=== PATIENT | female | born 1940 | race Caucasian/White ===

== ENCOUNTER 2017-06-02 11:41 | Day surgery (SDC) | payer MEDICARE, OTHER ==
[~2017-06-02] VITALS: Ht 162.6 cm; Wt 111.1 kg
[~2017-06-02 11:41] MED LIST: CITA20 PO; GABA100 PO; LEVSOD88 PO; Lovastatin20 MG PO; NORT25 PO; Omeprazole20 M1 PO; PROP10 PO; Prinivil10 MG PO; RANI150 PO; VICODIN ES 7.51 EACH PO; ZOLP10 PO
[2017-06-02] MEDS ORDERED: ENOX40I SC (15:27)
[2017-06-02] MEDS ORDERED: OXYC5 PO (15:28)
[2017-06-02] MEDS ORDERED: PROM25 PO (15:29)
[2017-06-03 04:35] LABS: BASOPHILS ABSOLUTE AUTO 0.06 K/mm3 (0.00-0.23); BASOPHILS PERCENT AUTO 0 % (0-2); EOSINOPHILS ABSOLUTE AUTO 0.19 K/mm3 (0.00-0.68); EOSINOPHILS PERCENT AUTO 1 % (0-6); Hematocrit 37.4 % (33.0-51.0); Hemoglobin 12.2 g/dL (11.5-16.0); IMMATURE GRAN ABSOLUTE AUTO 0.07 K/mm3 (0.00-0.10); IMMATURE GRAN PERCENT AUTO 0 % (0-1); LYMPHOCYTES ABSOLUTE AUTO 3.44 K/mm3 (0.84-5.20); LYMPHOCYTES PERCENT AUTO 21 % (21-46); MONOCYTES ABSOLUTE AUTO 1.31 K/mm3 (0.16-1.47); MONOCYTES PERCENT AUTO 8 % (4-13); Mean Corpuscular HGB 28.1 pg (26.0-34.0); Mean Corpuscular HGB Conc 32.6 g/dL (31.5-36.5); Mean Corpuscular Volume 86 fL (80-100); Mean Platelet Volume 10.9 fL (9.1-12.4); NEUTROPHILS ABSOLUTE AUTO 11.07 K/mm3 (1.96-9.15); NEUTROPHILS PERCENT AUTO 69 % (41-73); Platelet Count 237 K/mm3 (150-400); RDW Coefficient Variation 13.2 % (11.7-14.2); RDW Standard Deviation 40.9 fL (35.1-46.3); Red Blood Cell Count 4.34 M/mm3 (3.80-5.20); White Blood Cell Count 16.14 K/mm3 (4.00-11.30)
[2017-06-03 04:54] LABS: Anion Gap 7 mmol/L (6-16); Blood Urea Nitrogen 16 mg/dL (8-24); Bun/Creatinine Ratio 22.9 (12.0-20.0); CO2, Blood 26 mmol/L (21-32); Calcium, Blood 8.6 mg/dL (8.5-10.1); Chloride, Blood 105 mmol/L (98-108); Glomerular Filtration Rate >60 (60-); Glucose, Blood 122 mg/dL (70-99); Magnesium, Blood 1.9 mg/dL (1.6-2.4); Potassium, Blood 4.3 mmol/L (3.5-5.5); Sodium, Blood 138 mmol/L (136-145)
[2017-10-08] MEDS ORDERED: Oxybutynin Chlo10 MG (11:28)
[2017-10-08] MEDS ORDERED: HYDR1TAB94 (11:29)
== END 2017-06-03 15:12 | disposition home or self-care (01) ==
LOC: ORSCMMR 11:41 → SURS 11:41 → PRE IP 11:41 → EDSTATUS 15:00 → SURS 17:39 → ENPENDDIS 06-03 08:39 → ORSCMMR 06-03 15:12 → SURS 06-03 15:12
PROVIDERS: Orthopaedic Surgery
PROC: 0SRC0J9 Replacement of Right Knee Joint with Synthetic Substitute, Cemented, Open Approach (ICD-10-PCS; principal; 2017-06-02 15:00)
PROC: 8E0YXBZ Computer Assisted Procedure of Lower Extremity (ICD-10-PCS; principal; 2017-06-02 15:00)
DX: M17.11 Unilateral primary osteoarthritis, right knee (principal); E11.9 Type 2 diabetes mellitus without complications; F41.8 Other specified anxiety disorders; G47.33 Obstructive sleep apnea (adult) (pediatric); K21.9 Gastro-esophageal reflux disease without esophagitis; E78.5 Hyperlipidemia, unspecified; E03.9 Hypothyroidism, unspecified; I10 Essential (primary) hypertension; Z87.891 Personal history of nicotine dependence; E66.01 Morbid (severe) obesity due to excess calories; Z68.41 Body mass index [BMI] 40.0-44.9, adult; Z79.899 Other long term (current) drug therapy
CPT/HCPCS: 36415; 73560-RT; 80048; 82947; 83735; 85025; 86850; 86900; 86901; 88300; 97110; 97116; 97162; 97530; C1713; C1776; G8978; G8979; J0171; J0690; J0735; J1170; J1650; J1885; J2250; J2405; J2795; J3370; J7120

== ENCOUNTER → 2019-05-23 | Outpatient (CLI) | payer MEDICARE, OTHER ==
[~2019-05-23] MED LIST changes: +ASCO500 PO; +B Complex-Foli1 EACH PO; -CITA20 PO; +Citalopram HBr40 MG PO; +ENOX40I SC; +HYDR1TAB94; +LEVSOD75 PO; -LEVSOD88 PO; +NORCO 7.5-3251 EACH PO; -NORT25 PO; +Nortriptyline H10 MG PO; +OXYC5 PO; +Oxybutynin Chlo10 MG; +Oxybutynin Chlo10 MG PO; +Oyster Shell C500 MG PO; +PROM25 PO; +Vitamin D2000 UNIT PO; +ZOLP5 PO
== END ==
LOC: LAB SHORT 17:13 → LAB EV 17:13
DX: R30.9 Painful micturition, unspecified (principal)
CPT/HCPCS: 87086

== ENCOUNTER 2019-05-29 13:43 | Inpatient (IN) | payer MEDICARE, OTHER ==
[~2019-05-29] VITALS: Ht 167.6 cm; Wt 102.1 kg
[~2019-05-29 13:43] MED LIST changes: -ASCO500 PO; -B Complex-Foli1 EACH PO; -NORCO 7.5-3251 EACH PO; -Oxybutynin Chlo10 MG PO; -Oyster Shell C500 MG PO; -Vitamin D2000 UNIT PO; -ZOLP5 PO
[2019-05-29] MEDS ORDERED: NORCO 7.5-3251 EACH PO (15:20)
[2019-05-29 15:33] LABS: BASOPHILS ABSOLUTE AUTO 0.09 K/mm3 (0.00-0.23); BASOPHILS PERCENT AUTO 1 % (0-2); EOSINOPHILS ABSOLUTE AUTO 0.12 K/mm3 (0.00-0.68); EOSINOPHILS PERCENT AUTO 1 % (0-6); Hematocrit 41.8 % (33.0-51.0); Hemoglobin 13.3 g/dL (11.5-16.0); IMMATURE GRAN ABSOLUTE AUTO 0.07 K/mm3 (0.00-0.10); IMMATURE GRAN PERCENT AUTO 1 % (0-1); LYMPHOCYTES ABSOLUTE AUTO 2.77 K/mm3 (0.84-5.20); LYMPHOCYTES PERCENT AUTO 21 % (21-46); MONOCYTES ABSOLUTE AUTO 0.87 K/mm3 (0.16-1.47); MONOCYTES PERCENT AUTO 7 % (4-13); Mean Corpuscular HGB 28.1 pg (26.0-34.0); Mean Corpuscular HGB Conc 31.8 g/dL (31.5-36.5); Mean Corpuscular Volume 88 fL (80-100); Mean Platelet Volume 11.1 fL (9.1-12.4); NEUTROPHILS ABSOLUTE AUTO 9.03 K/mm3 (1.96-9.15); NEUTROPHILS PERCENT AUTO 70 % (41-73); Platelet Count 217 K/mm3 (150-400); RDW Coefficient Variation 13.7 % (11.7-14.2); RDW Standard Deviation 44.3 fL (35.1-46.3); Red Blood Cell Count 4.73 M/mm3 (3.80-5.20); White Blood Cell Count 12.95 K/mm3 (4.00-11.30)
[2019-05-29] MEDS ORDERED: GABA100 PO (15:39)
[2019-05-29] MEDS ORDERED: Oxybutynin Chlo10 MG PO (15:39)
[2019-05-29] MEDS ORDERED: ASCO500 PO (15:41)
[2019-05-29] MEDS ORDERED: Vitamin D2000 UNIT PO (15:41)
[2019-05-29] MEDS ORDERED: B Complex-Foli1 EACH PO (15:41)
[2019-05-29] MEDS ORDERED: Oyster Shell C500 MG PO (15:41)
[2019-05-29] MEDS ORDERED: ZOLP5 PO (15:45)
[2019-05-29 15:56] LABS: Alanine Aminotransfer (ALT/SGP 22 U/L (12-78); Albumin, Blood 3.2 g/dL (3.4-5.0); Albumin/Globulin Ratio 0.9 (0.8-1.8); Alk Phos 67 U/L (50-136); Anion Gap 5 mmol/L (6-16); Aspartate Aminotrans (AST/SGOT 21 U/L (12-37); Bilirubin, Total 0.3 mg/dL (0.1-1.0); Blood Urea Nitrogen 14 mg/dL (8-24); Bun/Creatinine Ratio 22.5 (12.0-20.0); CO2, Blood 23 mmol/L (21-32); Calcium, Blood 8.7 mg/dL (8.5-10.1); Chloride, Blood 109 mmol/L (98-108); Creatinine, Blood 0.62 mg/dL (0.40-1.00); Globulin, Blood 3.7 g/dL (2.2-4.0); Glomerular Filtration Rate >60 (60-); Glucose, Blood 101 mg/dL (70-99); Potassium, Blood 4.2 mmol/L (3.5-5.5); Sodium, Blood 137 mmol/L (136-145); Total Protein, Blood 6.9 g/dL (6.4-8.2)
[2019-05-29 16:51] LABS: Source, Urine Clean Catch
[2019-05-29 17:06] LABS: Bilirubin, Urine Neg (Neg); Blood, Urine Neg (Neg); Glucose Qualitative, Urine Neg (Neg); Ketones, Urine Neg (Neg); Leukocyte Esterase, Urine Neg (Neg); Nitrite, Urine Neg (Neg); Protein, Urine Neg (Neg); Specific Gravity, Urine 1.015 (1.003-1.022); Urobilinogen, Urine NORM (Normal); pH, Urine 6.5 (5.0-8.0)
[2019-05-29 17:20] LABS: Appearance, Urine Clear (Clear); Color, Urine Yellow (P-Yellow)
--- NOTE | 2019-05-29 17:36 | NUR ---
ADMIT ER ADMIT WITH R ANKLE FX. DR. TARIQ AWARE OF CONSULT. PT NPO AT MIDNIGHT FOR PROCEDURE TOMORROW. PT REPORTS R ANKLE PAIN OF 5/10 BUT DENIES NEED FOR PAIN MEDS. R ANKLE SPLINTED WITH ICE IN PLACE AND ELEVATED ON PILLOWS. FAMILY AT BEDSIDE FOR SUPPORT. CALL LIGHT WITHIN REACH.
--- NOTE | 2019-05-30 05:23 | NUR ---
ALERT AND ORIENTED, ABLE TO HELP STAFF TURN AND REPOSITION. HER RT LEG PAIN HAS BEEN CONTROLLED WITH ORAL MEDICATIONS PER EMAR. SHE IS ABLE TO WIGGLE HER TOES, THEY ARE WARM, HOWEVER LEON COLORED. SHE HAS BEEN NPO EXCEPT ENOUGH WATER TO SWALLOW PILLS SINCE MIDNIGHT. NO ACUTE CHANGES.
[2019-05-30 07:16] LABS: BASOPHILS ABSOLUTE AUTO 0.07 K/mm3 (0.00-0.23); BASOPHILS PERCENT AUTO 1 % (0-2); EOSINOPHILS ABSOLUTE AUTO 0.11 K/mm3 (0.00-0.68); EOSINOPHILS PERCENT AUTO 1 % (0-6); Hemoglobin 11.9 g/dL (11.5-16.0); IMMATURE GRAN ABSOLUTE AUTO 0.05 K/mm3 (0.00-0.10); IMMATURE GRAN PERCENT AUTO 1 % (0-1); LYMPHOCYTES ABSOLUTE AUTO 3.55 K/mm3 (0.84-5.20); LYMPHOCYTES PERCENT AUTO 33 % (21-46); MONOCYTES ABSOLUTE AUTO 0.99 K/mm3 (0.16-1.47); MONOCYTES PERCENT AUTO 9 % (4-13); Mean Corpuscular HGB 27.6 pg (26.0-34.0); Mean Corpuscular HGB Conc 31.3 g/dL (31.5-36.5); Mean Corpuscular Volume 88 fL (80-100); Mean Platelet Volume 11.1 fL (9.1-12.4); NEUTROPHILS ABSOLUTE AUTO 6.01 K/mm3 (1.96-9.15); NEUTROPHILS PERCENT AUTO 56 % (41-73); Platelet Count 236 K/mm3 (150-400); RDW Coefficient Variation 13.8 % (11.7-14.2); RDW Standard Deviation 44.3 fL (35.1-46.3); Red Blood Cell Count 4.31 M/mm3 (3.80-5.20); White Blood Cell Count 10.78 K/mm3 (4.00-11.30)
[2019-05-30 07:30] LABS: Alanine Aminotransfer (ALT/SGP 19 U/L (12-78); Albumin, Blood 3.1 g/dL (3.4-5.0); Albumin/Globulin Ratio 0.9 (0.8-1.8); Alk Phos 65 U/L (50-136); Anion Gap 6 mmol/L (6-16); Aspartate Aminotrans (AST/SGOT 14 U/L (12-37); Bilirubin, Total 0.5 mg/dL (0.1-1.0); Blood Urea Nitrogen 11 mg/dL (8-24); CO2, Blood 25 mmol/L (21-32); Calcium, Blood 8.5 mg/dL (8.5-10.1); Chloride, Blood 108 mmol/L (98-108); Creatinine, Blood 0.73 mg/dL (0.40-1.00); Globulin, Blood 3.4 g/dL (2.2-4.0); Glomerular Filtration Rate >60 (60-); Glucose, Blood 100 mg/dL (70-99); Sodium, Blood 139 mmol/L (136-145); Total Protein, Blood 6.5 g/dL (6.4-8.2)
--- NOTE | 2019-05-30 15:20 | NUR ---
PT TO DAY SURGERY AT THIS TIME.
--- NOTE | 2019-05-30 15:28 | NUR ---
INTO SDS VIA BED. RIGHT LOWER EXTREMITY WITH SPLINT AND KANDIS WRAP IN PLACE. PT REPORTS 7/10 RIGHT LEG PAIN. PT STATES THAT 2/10 PAIN IS A TOLERABLE LEVEL FOR HER. HISTORY AND ALLERGIES REVIEWED. NPO STATUS CONFIRMED. LUNGS TIGHT AND DIMINISHED T/O. AUDIBLY WZ AT TIMES. SATS>90% ON RA. PT STATES THAT SHE IS SOB WITH EXERTION.
--- NOTE | 2019-05-30 18:38 | NUR ---
POST OP S/P R ANKLE REPAIR. ORTHO GLASS SPLINT AND KANDIS WRAP IN PLACE WHICH ARE CDI. ELEVATED ON PILLOWS. PT APPEARS TO BE CONFUSED POST OP AND IS NOT FOLLOWING COMMANDS. ENCOURAGING DEEP BREATHES AND 2L VIA NC PLACED FOR SATS 88-89%. PT SLOWLY IMPROVING AND COMING UP INTO THE 90S. PT APPEARS TO BE COMFORTABLE. NO S/S PAIN NOTED. FAMILY AT BEDSIDE FOR SUPPORT. BED ALARM IN PLACE FOR SAFETY UNTIL PT MORE A + O. FRANCA LAGUNA'John IN PACU AND ATTENDS ARE IN PLACE THAT ARE CURRENTLY CLEAN AND DRY. CALL LIGHT WITHIN REACH.
--- NOTE | 2019-05-31 04:55 | NUR ---
SHIFT SUMMARY: DIONY IS POD1 FOR A RIGHT ANKLE ORIF. SHE IS ALERT AND ORIENTED, BUT HAS HAD EPISODES OF PULLING OFF HER OXYGEN AND IV. SHE IS TOLERATING PO INTAKE WELL. SHE RATES HER PAIN AT 6/10 AND STATES THAT IT IS TOLERABLE. SHE IS INCONTINENT OF BLADDER, ATTENDS IN PLACE. BED ALARM ON FOR SAFETY. KANDIS OVER SPLINT TO RLE CLEAN, DRY AND INTACT. PT IS LYING IN BED WITH THE CALL LIGHT IN REACH. WILL REPORT TO DAY SHIFT RN.
--- NOTE | 2019-05-31 17:54 | NUR ---
SUMMARY NO ACUTE CHANGES T/O SHIFT. PT APPEARS TO HAVE MEMORY DEFICITS. FORGETS TO CALL WHEN NEEDS ASSISTANCE AND TRIES TO TRANSFER INDEPENDENTLY. CANNOT FOLLOW INSTRUCTIONS TO REMAIN NONWB TO E. BED ALARM ON. PT INCONTINENT AT TIMES. MEDICATED TWICE DURING SHIFT FOR PAIN PER ORDERS. CBGS DID NOT REQUIRE COVERAGE T/O SHIFT. CALL LIGHT IN REACH AND BED ALARM ON.
--- NOTE | 2019-06-01 05:52 | NUR ---
SHIFT SUMMARY HAS RESTED WELL, GOOD INTAKE AND OUTPUT NOTED. PAIN MANAGED WITH PO DILAUDID ONCE THIS SHIFT. HAS BEEN CHANGED MULTIPLE TIMES, IS A HEAVY WETTER. REPOSITIONED Q2HRS AND PRN THOROUGH SHIFT. RLE ELEVATED ON PILLS. SMALL AMOUNT OF OOZING NOTED FROM ANKLE, ABSORBENT PAD PLACED UNDER LEG ON TOP OF PILLOW. DENIES FURTHER NEEDS OR WANTS AT THIS TIME. SAFETY MEASURES IN PLACE. WILL GIVE HAND OFF TO ONCOMING SHIFT USING SBAR DURING BEDSIDE REPORT.
--- NOTE | 2019-06-01 10:28 | NUR ---
SPOKE TO DR SHERIDAN- PT DRESSING IS SOILED LEAKING SEROSANGUINOUS FLUID. ORDER TO NOT TOUCH THE DRESSING DR SHERIDAN IS IN CLINIC AND WILL COME CHANGE THE DRESSING AROUND NOON. DISCHARGE PENDING.
--- NOTE | 2019-06-01 11:42 | NUR ---
DR SHERIDAN CAME TO SEE THE PT AND CHANGED THE BANDAGE AND SPLINT FOR THE PT. STATED HE WILL SEE THE PT IN HIS OFFICE NEXT WEEK. PT HAS ORDERS TO DISCHARGE TO HOME WITH HOME HEALTH.
--- NOTE | 2019-06-01 15:00 | NUR ---
PT DISCHARGE HOME WITH HOME HEALTH DISCONTINUED. PT TO STAY IN PT POSSIBLE DISCHARGE TO REHAB ON WEDNESDAY. PT STRONGLY RECOMENDS SNF DISCHARGE. PT FAMILY AND PT WISH TO DISCHARGE TO REHAB FACILITY WELL. PT DOES NOT HAVE A WHEEL CHAIR AT HOME OR BSC. PT IS A 2P MAX ASSIST WITH TRANSFERS, NWB ON THE RLE; PT IS FORGETFUL AND FORGETS THAT SHE CAN NOT BEAR WEIGHT ON THE EXTREMITY. PER SURGEON PT CAN NOT BEAR WEIGHT ON THE EXTREMITY, BED ALARM SET FOR SAFETY. PT FAMILY STATED SHE IS MUCH MORE CONFUSED THAN SHE USUALLY IS. PT URINE SMELLS STRONG AND SHE IS COMPLETELY INCONTINENT OF URINE.
--- NOTE | 2019-06-01 18:47 | NUR ---
SHIFT SUMMARY- PT HAS HAD NO ACUTE CHANGE T/O THE SHIFT. PLAN IS FOR HER TO DISCHARGE TO SNF WEDNESDAY, PT AND FAMILY ARE AWARE. PT MEDICATED ONCE FOR PAIN WITH PO DILAUDID AND IT SEEMED TO HELP GREATLY NO S&S OF PAIN NOTED AT THIS TIME WILL CTM. PT IS A 2P MAX ASSIST TO THE CHAIR OR BSC, NWB ON RLE. DRESSING CHANGED EARLER THIS SHIFT (SEE PREVIOUS NOTES FOR DETAILS).
--- NOTE | 2019-06-02 04:16 | NUR ---
SHIFT SUMMARY HAS RESTED WELL, GOOD INTAKE AND OUTPUT NOTED. HAS BEEN CHANGED MULTIPLE TIMES, IS A HEAVY WETTER. REPOSITIONED Q2HRS AND PRN THOROUGH SHIFT. RLE ELEVATED ON PILLOWS, DRESSING STILL C/D/I. DENIES FURTHER NEEDS OR WANTS AT THIS TIME. SAFETY MEASURES IN PLACE. WILL GIVE HAND OFF TO ONCOMING SHIFT USING SBAR DURING BEDSIDE REPORT.
--- NOTE | 2019-06-02 18:32 | NUR ---
SHIFT SUMMARY PT A&O, PT IS 2 DAYS POST OP FROM RIGHT ANKLE ORIF, PT IS CURRENTLY ON WEIGHT BEARING RESTRICTIONS, RE-INTERATED PT TO CALL FOR HELP WITH TRANSFER TO CHAIR. PT TOLORATED TRANSFER WELL AND WAS UP IN CHAIR FOR MEALS THIS SHIFT. PT WAS MEDICATED FOR PAIN x1 THIS SHIFT AND HAD NO COMPLIANTS OF NAUSEA. PT HAS A DRESSING ON [employer] PREVENTATIVE. PT TOLORATE MEALS WELL TODAY. FAMILY WAS CONCERNED THAT ANTIBIOTICS WAS STARTED FOR UTI PRIOR TO ADMISSION AND PT WAS RE-STARTED THIS SHIFT BY LAURA. PT HAS CALL LIGHT WITH IN REACH AND CHAIR ALARM ON. WILL REPORT TO ONCOMING SHIFT.
--- NOTE | 2019-06-03 06:39 | NUR ---
SHIFT SUMMARY: VIVIENNE RESTED COMFORTABLY FOR THE MAJORITY OF THE NIGHT. SHE IS INCONTINENT WHILE SLEEPING, BUT DOES CALL FOR TOILETING ASSISTANCE WHEN AWAKE. SHE IS POD4 FOR A RIGHT ANKLE ORIF BY DR. SHERIDAN. SHE DID REQUEST APAP FOR PAIN THIS MORNING. SHE IS TOLERATING PO INTAKE WELL. SHE IS ABLE TO MOVE HERSELF IN BED WITHOUT ASSISTANCE. SHE IS ABLE TO MAKE HER NEEDS KNOWN. SHE IS LYING IN BED WITH HER CALL LIGHT IN REACH. WILL REPORT TO DAY SHIFT RN.
--- NOTE | 2019-06-03 18:42 | NUR ---
SHIFT SUMMARY PT A&OX4, VSS, RA, POD4 R ANKLE ORIF, SPLINT/KANDIS WRAP ON, ELEVATED ON PILLOW. PAIN MANAGED WITH 1 MG DILAUDID PO AND TYLENOL. KIMBERLY PO, DENIES N&V. REPOSITIONS SELF WELL IN BED; STAND/PIVOT TO BSC/CHAIR/BED. VOIDING IN BSC/ATTENDS ON FOR URGENCY AND INCONTINENCE AT TIMES. BOWEL CARE PROVIDED TODAY; NO BM AT THIS TIME. WILL REPORT TO ONCOMING FRANCO RN.
--- NOTE | 2019-06-04 07:32 | NUR ---
Patient is mobile to the [facility] [place]. She has been continent of urine all night. patient stated that she slept well throught the night. no acute changes.
--- NOTE | 2019-06-04 15:59 | NUR ---
SHIFT SUMMARY PT A&OX4, VSS, POD5 R ANKLE ORIF, SPLINT W/KANDIS WRAP. PAIN MANAGED WITH TYLENOL AND 1 MG DILAUDID. KIMBERLY PO, DENIES N&V. AMB W/FWW & SBA TO BSC/CHAIR/BED. SAT IN CHAIR FOR BREAKFAST, TRANSFERRED SELF BACK TO BED/DID NOT CALL FOR ASSISTANCE, PT REFUSED TO GET OOB REST OF SHIFT. REPOSITIONS SELF WELL. VOIDING WELL, OCC INCONTINENCE, ATTENDS ON. RE-EDUCATED PATIENT ON USING CALL LIGHT FOR ASSISTANCE, SAFETY WITH TRANSFERS. WILL REPORT TO ONCOMING NOC RN.
--- NOTE | 2019-06-05 06:06 | NUR ---
PT SLEPT MOST OF THE NIGHT. SHE HOWEVER STATED THAT SHE DID NOT SLEEP WELL FOR MOST OF THE SHIFT. AT APPROXIMATELY 0230 SHE WOKE TO A SATURATED BED. PATIENT WAS CLEANED AND BED WAS CHANGED. PATIENT ALSO GIVEN IV PAIN MEDICATION FOR RT ANKLE PAIN. PATIENT WOULD LIKE TO BE DISCHARGED HOME TODAY, SHE DOES NOT WANT TO GO TO A SNF. NO ACUTE CHANGES.
--- NOTE | 2019-06-05 11:44 | NUR ---
SHIFT ASSESSMENT SHIFT ASSESSMENT BY LISETTE COYNE STUDENT NURSE WAS REVIEWED AND THIS RN AGREES WITH DOCUMENTATION. PT IS ALERT AND A 1 ASSIST WHEN OOB. WILL CONTINUE TO MONITOR.
[2019-06-05] MEDS ORDERED: Amoxicillin500 MG PO (14:14)
[2019-06-05] MEDS ORDERED: BISA10S PR (14:15)
[2019-06-05] MEDS ORDERED: Milk Of Ma400 MG/5 M PO (14:16)
[2019-06-05] MEDS ORDERED: DOCU100 PO (14:16)
[2019-06-05] MEDS ORDERED: MIRALAX17 G1 PO (14:17)
[2019-06-05] MEDS ORDERED: SENN187 PO (14:17)
--- NOTE | 2019-06-05 14:24 | NUR ---
REPORT CALLED TO [facility]. WILL CONTINUE WITH DISCHARGE PLAN WHEN TRANSPORT ARRIVES FOR PT.
--- NOTE | 2019-06-05 15:49 | NUR ---
DISCHARGE SUMMARY REPORT CALLED TO [facility], SEE PREVIOUS NOTE. PT ASSISTED INTO W/C FOR TRANSPORT. SCRIPTS AND ORDERS SENT WITH PT TO [facility].
== END 2019-06-05 15:45 | DRG 493 ==
LOC: ER 13:43 → ERHOLD 13:44 → SURS 13:44
PROVIDERS: Emergency Medicine; Family Medicine; ADMIT Internal Medicine
PROC: 0QSJ04Z Reposition Right Fibula with Internal Fixation Device, Open Approach (ICD-10-PCS; principal; 2019-05-31)
DX: S82.841A Displaced bimalleolar fracture of right lower leg, initial encounter for closed fracture (principal); N39.0 Urinary tract infection, site not specified; E03.9 Hypothyroidism, unspecified; E78.5 Hyperlipidemia, unspecified; F32.9 Major depressive disorder, single episode, unspecified; F41.9 Anxiety disorder, unspecified; G25.81 Restless legs syndrome; G47.33 Obstructive sleep apnea (adult) (pediatric); I95.9 Hypotension, unspecified; J44.9 Chronic obstructive pulmonary disease, unspecified; K21.9 Gastro-esophageal reflux disease without esophagitis; W18.30XA Fall on same level, unspecified, initial encounter; Z96.653 Presence of artificial knee joint, bilateral; B95.5 Unspecified streptococcus as the cause of diseases classified elsewhere; E11.649 Type 2 diabetes mellitus with hypoglycemia without coma; I10 Essential (primary) hypertension; E11.40 Type 2 diabetes mellitus with diabetic neuropathy, unspecified; Z91.81 History of falling; L89.311 Pressure ulcer of right buttock, stage 1; E66.01 Morbid (severe) obesity due to excess calories; Z87.891 Personal history of nicotine dependence
CPT/HCPCS: 29515; 36415; 51702; 71045; 73610; 80053; 81003; 82947; 85025; 90686; 93005; 93010; 96361; 96374-59; 96375; 96376; 97110; 97161; 97165; 97530; 97535; 99284-25; A9270; A9270-GY; C1713; C1769; G0008; G0378; J0690; J1100; J1170; J1885; J2250; J2405; J2704; J3010; J7030

== ENCOUNTER → 2019-10-24 | Outpatient (CLI) | payer MEDICARE, OTHER ==
[~2019-10-24] MED LIST changes: +ASCO500 PO; +Amoxicillin500 MG PO; +B Complex-Foli1 EACH PO; +BISA10S PR; +DOCU100 PO; +MIRALAX17 G1 PO; +Milk Of Ma400 MG/5 M PO; +NORCO 7.5-3251 EACH PO; +Oxybutynin Chlo10 MG PO; +Oyster Shell C500 MG PO; +SENN187 PO; +Vitamin D2000 UNIT PO; +ZOLP5 PO
== END | disposition home or self-care (01) ==
LOC: LAB EV 09:20 → LAB SHORT 09:20
DX: R30.9 Painful micturition, unspecified (principal)
CPT/HCPCS: 87077; 87086; 87186

== ENCOUNTER 2020-02-03 14:57 | Emergency (ER) | payer MEDICARE, OTHER ==
[~2020-02-03] VITALS: Ht 170.2 cm; Wt 113.4 kg
[2020-02-03] MEDS ORDERED: METO25ER PO (15:16)
[2020-02-03] MEDS ORDERED: Robaxin750 MG PO (15:17)
[2020-02-03] MEDS ORDERED: BISA10S PR (15:18)
[2020-02-03] MEDS ORDERED: ACET500 PO (15:19)
[2020-02-03 15:34] LABS: BASOPHILS ABSOLUTE AUTO 0.08 K/mm3 (0.00-0.23); BASOPHILS PERCENT AUTO 1 % (0-2); EOSINOPHILS ABSOLUTE AUTO 0.09 K/mm3 (0.00-0.68); EOSINOPHILS PERCENT AUTO 1 % (0-6); Hematocrit 42.8 % (33.0-51.0); Hemoglobin 13.8 g/dL (11.5-16.0); IMMATURE GRAN ABSOLUTE AUTO 0.05 K/mm3 (0.00-0.10); IMMATURE GRAN PERCENT AUTO 1 % (0-1); LYMPHOCYTES ABSOLUTE AUTO 3.32 K/mm3 (0.84-5.20); LYMPHOCYTES PERCENT AUTO 33 % (21-46); MONOCYTES ABSOLUTE AUTO 0.87 K/mm3 (0.16-1.47); MONOCYTES PERCENT AUTO 9 % (4-13); Mean Corpuscular HGB 27.5 pg (26.0-34.0); Mean Corpuscular HGB Conc 32.2 g/dL (31.5-36.5); Mean Corpuscular Volume 85 fL (80-100); Mean Platelet Volume 10.2 fL (9.1-12.4); NEUTROPHILS ABSOLUTE AUTO 5.72 K/mm3 (1.96-9.15); NEUTROPHILS PERCENT AUTO 56 % (41-73); Platelet Count 319 K/mm3 (150-400); RDW Coefficient Variation 13.6 % (11.7-14.2); RDW Standard Deviation 42.4 fL (35.1-46.3); Red Blood Cell Count 5.01 M/mm3 (3.80-5.20); White Blood Cell Count 10.13 K/mm3 (4.00-11.30)
[2020-02-03 15:54] LABS: Anion Gap 6 mmol/L (6-16); Blood Urea Nitrogen 13 mg/dL (8-24); Bun/Creatinine Ratio 19.6 (12.0-20.0); CO2, Blood 26 mmol/L (21-32); Chloride, Blood 108 mmol/L (98-108); Creatinine, Blood 0.66 mg/dL (0.40-1.00); Glomerular Filtration Rate >60 (60-); Glucose, Blood 117 mg/dL (70-99); Potassium, Blood 4.1 mmol/L (3.5-5.5); Sodium, Blood 140 mmol/L (136-145)
== END 2020-02-03 18:44 | disposition home or self-care (01) ==
LOC: ER 14:57
PROVIDERS: Emergency Medicine
DX: K59.00 Constipation, unspecified (principal); F41.9 Anxiety disorder, unspecified; I10 Essential (primary) hypertension; F32.9 Major depressive disorder, single episode, unspecified; K21.9 Gastro-esophageal reflux disease without esophagitis; E78.5 Hyperlipidemia, unspecified; E03.9 Hypothyroidism, unspecified; E11.9 Type 2 diabetes mellitus without complications; Z79.899 Other long term (current) drug therapy
CPT/HCPCS: 36415; 74022; 80048; 85025; 99284-25

== ENCOUNTER → 2021-03-31 | Outpatient (CLI) | payer MEDICARE, OTHER ==
[~2021-03-31] MED LIST changes: +ACET500 PO; +METO25ER PO; +Robaxin750 MG PO
== END | disposition home or self-care (01) ==
LOC: LAB SHORT 17:22
DX: R35.0 Frequency of micturition (principal)
CPT/HCPCS: 87077; 87086; 87186

== ENCOUNTER → 2021-08-08 | Outpatient (CLI) | payer MEDICARE, OTHER | END | disposition home or self-care (01) | LOC: LAB SHORT 15:50 | DX: N39.0 Urinary tract infection, site not specified (principal) | CPT/HCPCS: 87077; 87086; 87186 ==

== ENCOUNTER → 2021-09-25 | Outpatient (CLI) | payer MEDICARE, OTHER | END | disposition home or self-care (01) | LOC: LAB SHORT 17:54 → LAB 17:54 | DX: N39.0 Urinary tract infection, site not specified (principal) | CPT/HCPCS: 87086 ==

== ENCOUNTER → 2022-08-21 | Outpatient (CLI) | payer MEDICARE ==
[2022-08-21 13:15] LABS: Source, Urine Clean Catch
[2022-08-21 18:35] LABS: Appearance, Urine Clear (Clear); Bilirubin, Urine Neg (Neg); Blood, Urine Neg (Neg); Color, Urine Yellow (P-Yellow); Glucose Qualitative, Urine Neg (Neg); Ketones, Urine 1+ (Neg); Leukocyte Esterase, Urine Neg (Neg); Nitrite, Urine Neg (Neg); Protein, Urine 1+ (Neg); Urobilinogen, Urine NORM (Normal)
== END | disposition home or self-care (01) ==
LOC: LAB 13:13 → LAB SHORT 13:13 → EDSTATUS 07-22 11:20 → LAB FUT 07-22 11:20
PROVIDERS: Physician Assistant
DX: N39.0 Urinary tract infection, site not specified (principal)
CPT/HCPCS: 87077; 87086; 87186

== ENCOUNTER 2024-08-01 18:21 | Inpatient (IN) | payer MEDICARE ==
[~2024-08-01] VITALS: Ht 167.6 cm; Wt 100.0 kg
[2024-08-08 11:50] VITALS: BP 95/63
== END 2024-08-08 15:11 | DRG 64 ==
LOC: ER 18:21 → MEDS 18:22 → PCU 08-04 16:09 → MEDS 08-05 15:54
PROVIDERS: ADMIT Internal Medicine
DX: I63.9 Cerebral infarction, unspecified (principal); G93.41 Metabolic encephalopathy; N39.0 Urinary tract infection, site not specified; G81.91 Hemiplegia, unspecified affecting right dominant side; F05 Delirium due to known physiological condition; I48.91 Unspecified atrial fibrillation; G20.A1 Parkinson's disease without dyskinesia, without mention of fluctuations; K21.9 Gastro-esophageal reflux disease without esophagitis; E03.9 Hypothyroidism, unspecified; E78.5 Hyperlipidemia, unspecified; G47.33 Obstructive sleep apnea (adult) (pediatric); R47.01 Aphasia; R29.710 NIHSS score 10; I95.89 Other hypotension; E11.42 Type 2 diabetes mellitus with diabetic polyneuropathy; H54.7 Unspecified visual loss; F41.9 Anxiety disorder, unspecified; G25.81 Restless legs syndrome; Z90.710 Acquired absence of both cervix and uterus; Z90.721 Acquired absence of ovaries, unilateral; Z96.653 Presence of artificial knee joint, bilateral; Z98.49 Cataract extraction status, unspecified eye; Z90.89 Acquired absence of other organs; Z98.890 Other specified postprocedural states; Z98.84 Bariatric surgery status; Z79.890 Hormone replacement therapy; Z79.899 Other long term (current) drug therapy